=== PATIENT | male | born 1980 | race Hispanic/Latino ===

== ENCOUNTER 2021-11-17 16:24 | Emergency (ER) | payer OTHER ==
[2021-11-17] MEDS ORDERED: Acetaminophen 500 MG TAB ONE (17:24)
[2021-11-17] MEDS ORDERED: Ketorolac Tromethamine 30 MG/ML VIAL ONE (19:10)
== END 2021-11-17 19:28 | disposition home or self-care (01) ==
LOC: ERS 16:24
DX: S16.1XXA Strain of muscle, fascia and tendon at neck level, initial encounter (principal); R07.89 Other chest pain; M25.512 Pain in left shoulder; M25.561 Pain in right knee; I49.8 Other specified cardiac arrhythmias; R91.1 Solitary pulmonary nodule; V43.52XA Car driver injured in collision with other type car in traffic accident, initial encounter
CPT/HCPCS: 70450; 71250; 72125; 74177; 93005; 96374; J1885